=== PATIENT | female | born 1985 | race Caucasian/White ===

== ENCOUNTER → 2022-09-14 | Outpatient (CLI) | payer BC, OTHER ==
[~2022-09-14] MED LIST: IRON150C; MULTI VITAMIN1 EACH; OMEG1CAP30
[2022-09-18 11:09] LABS: HPV 16 Negative (Negative); HPV 18 Negative (Negative); HPV OTHER HR TYPES Negative (Negative)
== END | disposition home or self-care (01) ==
LOC: LAB SHORT 15:13
PROVIDERS: Family Medicine
DX: O09.511 Supervision of elderly primigravida, first trimester (principal); Z01.419 Encounter for gynecological examination (general) (routine) without abnormal findings
CPT/HCPCS: 87086; 87624; G0145

== ENCOUNTER → 2023-02-27 | Outpatient (CLI) | payer BC ==
[2023-02-27 09:36] LABS: Source, Urine Clean Catch
[2023-02-27 15:38] LABS: Appearance, Urine Cloudy (Clear); Bilirubin, Urine Neg (Neg); Blood, Urine 1+ (Neg); Color, Urine Yellow (P-Yellow); Glucose Qualitative, Urine Neg (Neg); Ketones, Urine Neg (Neg); Leukocyte Esterase, Urine 3+ (Neg); Nitrite, Urine Pos (Neg); Protein, Urine 2+ (Neg); Specific Gravity, Urine 1.015 (1.003-1.022); Urobilinogen, Urine NORM (Normal)
[2023-02-27 16:19] LABS: Bacteria Many /hpf; Squamous Epithelial Cells Many /hpf (Few); White Blood Cells, Urine 50-100 /hpf (0-5)
[2023-02-27 16:20] LABS: Calcium Oxalate Crystals Mod /hpf; Transitional Epithelial Cells Few /hpf (0-Rare)
== END | disposition home or self-care (01) ==
LOC: LAB SHORT 09:34 → LAB 09:34
PROVIDERS: Advanced Practice Midwife
DX: O09.513 Supervision of elderly primigravida, third trimester (principal); D72.829 Elevated white blood cell count, unspecified
CPT/HCPCS: 81001; 87077; 87081; 87086; 87150; 87186

== ENCOUNTER 2023-03-13 19:30 | Inpatient (IN) | payer BC ==
[~2023-03-13] VITALS: Ht 165.1 cm; Wt 130.0 kg
[2023-03-13 20:12] LABS: BASOPHILS ABSOLUTE AUTO 0.04 K/mm3 (0.00-0.23); BASOPHILS PERCENT AUTO 0 % (0-2); EOSINOPHILS ABSOLUTE AUTO 0.12 K/mm3 (0.00-0.68); EOSINOPHILS PERCENT AUTO 1 % (0-6); Hematocrit 38.2 % (33.0-51.0); Hemoglobin 13.3 g/dL (11.5-16.0); IMMATURE GRAN ABSOLUTE AUTO 0.05 K/mm3 (0.00-0.10); IMMATURE GRAN PERCENT AUTO 0 % (0-1); LYMPHOCYTES ABSOLUTE AUTO 2.18 K/mm3 (0.84-5.20); LYMPHOCYTES PERCENT AUTO 20 % (21-46); MONOCYTES ABSOLUTE AUTO 0.64 K/mm3 (0.16-1.47); MONOCYTES PERCENT AUTO 6 % (4-13); Mean Corpuscular HGB 30.9 pg (26.0-34.0); Mean Corpuscular HGB Conc 34.8 g/dL (31.5-36.5); Mean Corpuscular Volume 89 fL (80-100); NEUTROPHILS ABSOLUTE AUTO 8.12 K/mm3 (1.96-9.15); NEUTROPHILS PERCENT AUTO 73 % (41-73); Platelet Count 299 K/mm3 (150-400); RDW Coefficient Variation 12.5 % (11.7-14.2); RDW Standard Deviation 40.7 fL (35.1-46.3); White Blood Cell Count 11.15 K/mm3 (4.00-11.30)
[2023-03-13 20:38] LABS: Albumin, Blood 2.6 g/dL (3.4-5.0); Albumin/Globulin Ratio 0.6 (0.8-1.8); Bilirubin, Total 0.6 mg/dL (0.1-1.0); Calcium, Blood 9.9 mg/dL (8.5-10.1); Creatinine, Blood 0.75 mg/dL (0.40-1.00); Globulin, Blood 4.7 g/dL (2.2-4.0); Potassium, Blood 4.2 mmol/L (3.5-5.5); Total Protein, Blood 7.3 g/dL (6.4-8.2)
[2023-03-13] MEDS ORDERED: URSODIOL200 MG (20:39)
[2023-03-13] MEDS ORDERED: ASPI81CH (20:39)
[2023-03-13] MEDS ORDERED: PRENATAL TABLE1 EAC2 (20:40)
[2023-03-13 20:43] VITALS: BP 138/83
[2023-03-13 21:07] LABS: Protein, Urine Random 40.9 mg/dL (0.0-11.9); Protein/Creat Ratio, Ur Random 0.1
[2023-03-14] VITALS (32 sets, daily range): BP systolic 120–180; BP diastolic 55–94
--- NOTE | 2023-03-14 17:11 | NUR ---
BLEEDING PT CONTINUES TO HAVE A FULL PAD OF CLOTS. UTERUS FIRM AND SCANT BLEEDING WITH MASSAGE. DR WHITE IN HOUSE AND IN TO ASSESS. BLEEDING COMING FROM LACERATION NEAR THE URETHRA. STERILE FIELD OUT AND REPAIR DONE. FENTANYL GIVEN FOR PAIN RELIEF.
[2023-03-15 01:36] VITALS: BP 139/70
[2023-03-15 07:33] VITALS: BP 134/76
== END 2023-03-15 11:40 | disposition home or self-care (01) | DRG 805 ==
LOC: OBS 19:30 → BC 19:32 → OBS 19:36 → BC 19:37
PROVIDERS: ADMIT Advanced Practice Midwife
PROC: 10E0XZZ Delivery of Products of Conception, External Approach (ICD-10-PCS; principal; 2023-03-14)
PROC: 3E0R3BZ Introduction of Anesthetic Agent into Spinal Canal, Percutaneous Approach (ICD-10-PCS; 2023-03-14)
PROC: 00HU33Z Insertion of Infusion Device into Spinal Canal, Percutaneous Approach (ICD-10-PCS; 2023-03-14)
PROC: 0HQ9XZZ Repair Perineum Skin, External Approach (ICD-10-PCS; 2023-03-14)
PROC: 0UQMXZZ Repair Vulva, External Approach (ICD-10-PCS; 2023-03-14)
DX: O26.643 Intrahepatic cholestasis of pregnancy, third trimester (principal); K83.1 Obstruction of bile duct; Z37.0 Single live birth; O99.214 Obesity complicating childbirth; Z3A.38 38 weeks gestation of pregnancy; O70.0 First degree perineal laceration during delivery; O71.82 Other specified trauma to perineum and vulva; Z98.890 Other specified postprocedural states; Z88.2 Allergy status to sulfonamides; Z79.899 Other long term (current) drug therapy
CPT/HCPCS: 36415; 51702; 80053; 82570; 84156; 85025; 86850; 86900; 86901; 86923; A9270; J2590; J3010; J7120

== ENCOUNTER 2024-01-25 12:42 | Day surgery (SDC) | payer BC ==
[~2024-01-25] VITALS: Ht 165.1 cm; Wt 125.8 kg
[~2024-01-25 12:42] MED LIST changes: +ASPI81CH; +Lactated Ringer's 1,000 ML IV ONE; +PRENATAL TABLE1 EAC2; +URSODIOL200 MG
[2024-01-25] MEDS ORDERED: Lactated Ringer's 1,000 ML IV ONE (13:45)
[2024-01-25] MEDS ORDERED: propofoL 50 ML IV ONE (14:00)
[2024-01-25] MEDS ORDERED: Lidocaine 2% 5 ML SDV ONE (14:45)
[2024-01-25 14:51] VITALS: BP 105/60
== END 2024-01-25 14:53 | disposition home or self-care (01) ==
LOC: ORSCSDS 12:42
PROVIDERS: Internal Medicine Gastroenterology
PROC: 0DBL8ZX Excision of Transverse Colon, Via Natural or Artificial Opening Endoscopic, Diagnostic (ICD-10-PCS; principal; 2024-01-25 14:00)
DX: Z12.11 Encounter for screening for malignant neoplasm of colon (principal); Z80.0 Family history of malignant neoplasm of digestive organs; D12.3 Benign neoplasm of transverse colon; K21.9 Gastro-esophageal reflux disease without esophagitis
CPT/HCPCS: 88305; J2704; J7120

== ENCOUNTER → 2024-06-20 | Outpatient (CLI) | payer BC ==
[~2024-06-20] MED LIST changes: -Lactated Ringer's 1,000 ML IV ONE
[2024-06-20 14:44] LABS: Source, Urine Clean Catch
[2024-06-20 15:43] LABS: Bacteria Mod /hpf; Red Blood Cells, Urine 0-2 /hpf (0-2); Squamous Epithelial Cells Few /hpf (Few)
== END | disposition home or self-care (01) ==
LOC: LAB SHORT 14:41
PROVIDERS: Advanced Practice Midwife
DX: O09.521 Supervision of elderly multigravida, first trimester (principal)
CPT/HCPCS: 81015; 87086

== ENCOUNTER → 2024-12-26 | Outpatient (CLI) | payer BC | LOC: LAB 13:52 → LAB SHORT 13:52 | DX: O09.90 Supervision of high risk pregnancy, unspecified, unspecified trimester (principal) | CPT/HCPCS: 87081; 87150 ==

== ENCOUNTER 2025-01-16 17:55 | Inpatient (IN) | payer BC ==
[~2025-01-16] VITALS: Ht 165.1 cm; Wt 134.1 kg
[2025-01-16] MEDS ORDERED: PRENATAL TABLE1 EAC2 PO (18:19)
[2025-01-16] MEDS ORDERED: ASPI81CH PO (18:19)
[2025-01-16] MEDS ORDERED: Methylergonovine Maleate 0.2MG / ML 1ML Amp IM PRN (19:25)
[2025-01-16] MEDS ORDERED: Oxytocin 10 Unit / ML Vial IM PRN (19:25)
[2025-01-16] MEDS ORDERED: Ondansetron HCl 2 MG / ML 2ML Vial IV PRN (19:25)
[2025-01-16] MEDS ORDERED: ePHEDrine Sulfate 50 MG/ML 1ML Injection XX PRN (19:25)
[2025-01-16] MEDS ORDERED: Carboprost Tromethamine 250 MCG/ML 1ML Amp IM PRN (19:25)
[2025-01-16] MEDS ORDERED: FentaNYL 2mcg/ml-Bup 0.1% Epd 250 ML EPI PRN (19:25)
[2025-01-16] MEDS ORDERED: OXYTOCIN/RINGER'S LACTATE 500 ML IV PRN ×2 (19:25)
[2025-01-16 19:37] VITALS: BP 109/55
[2025-01-16 19:52] LABS: BASOPHILS ABSOLUTE AUTO 0.04 K/mm3 (0.00-0.23); BASOPHILS PERCENT AUTO 0 % (0-2); EOSINOPHILS ABSOLUTE AUTO 0.14 K/mm3 (0.00-0.68); EOSINOPHILS PERCENT AUTO 1 % (0-6); Hematocrit 37.2 % (33.0-51.0); Hemoglobin 13.1 g/dL (11.5-16.0); IMMATURE GRAN ABSOLUTE AUTO 0.06 K/mm3 (0.00-0.10); IMMATURE GRAN PERCENT AUTO 1 % (0-1); LYMPHOCYTES ABSOLUTE AUTO 2.22 K/mm3 (0.84-5.20); LYMPHOCYTES PERCENT AUTO 21 % (21-46); MONOCYTES ABSOLUTE AUTO 0.86 K/mm3 (0.16-1.47); MONOCYTES PERCENT AUTO 8 % (4-13); Mean Corpuscular HGB Conc 35.2 g/dL (31.5-36.5); Mean Corpuscular Volume 89 fL (80-100); NEUTROPHILS ABSOLUTE AUTO 7.35 K/mm3 (1.96-9.15); NEUTROPHILS PERCENT AUTO 69 % (41-73); NRBC ABSOLUTE 0.00 K/mm3 (0.00-0.02); NRBC Auto 0.0 /100 WBC (0.0-0.2); RDW Coefficient Variation 12.8 % (11.7-14.2); RDW Standard Deviation 41.6 fL (35.1-46.3)
[2025-01-16 20:17] LABS: Platelet Count 266 K/mm3 (150-400)
[2025-01-16 23:52] VITALS: BP 112/56
[2025-01-17] VITALS (42 sets, daily range): BP systolic 128–169; BP diastolic 62–103
[2025-01-17] MEDS ORDERED: Metoclopramide HCl 5MG / ML 2ML Vial IV PRN (14:45)
[2025-01-17] MEDS ORDERED: Ondansetron HCl 2 MG / ML 2ML Vial IV PRN (14:45)
[2025-01-17] MEDS ORDERED: Naloxone HCl 0.4MG / ML 1ML Vial IV PRN (14:45)
[2025-01-17] MEDS ORDERED: ePHEDrine Sulfate 50 MG/ML 1ML Injection IV PRN (14:50)
[2025-01-17] MEDS ORDERED: DiphenhydrAMINE HCl 50 MG/ML 1ML Vial IV PRN (14:50)
[2025-01-17] MEDS ORDERED: Carboprost Tromethamine 250 MCG/ML 1ML Amp IM PRN (19:55)
[2025-01-17] MEDS ORDERED: Witch Hazel/Glycerin PADS TOP PRN (19:55)
[2025-01-17] MEDS ORDERED: Benzocaine Topical Anesthetic Spray 60GM TOP PRN (20:00)
[2025-01-17] MEDS ORDERED: Ketorolac Tromethamine 30mg Vial IV PRN (20:00)
[2025-01-17] MEDS ORDERED: OXYTOCIN/RINGER'S LACTATE 500 ML IV SCH (20:05)
[2025-01-18 04:40] VITALS: BP 144/83
[2025-01-18] MEDS ORDERED: Prenatal Vit/FE Fumarate/FA 1 Tab PO SCH (09:00)
[2025-01-18 09:30] VITALS: BP 114/70
[2025-01-18 14:12] VITALS: BP 124/68
[2025-01-18 16:34] VITALS: BP 144/65
[2025-01-18 19:14] VITALS: BP 127/85
== END 2025-01-18 19:23 | disposition home or self-care (01) | DRG 807 ==
LOC: OBS 17:55 → BC 18:03
PROVIDERS: ADMIT Family Medicine
PROC: 10E0XZZ Delivery of Products of Conception, External Approach (ICD-10-PCS; principal; 2025-01-17)
PROC: 4A1HXCZ Monitoring of Products of Conception, Cardiac Rate, External Approach (ICD-10-PCS; 2025-01-17)
PROC: 10907ZC Drainage of Amniotic Fluid, Therapeutic from Products of Conception, Via Natural or Artificial Opening (ICD-10-PCS; 2025-01-17)
PROC: 3E033VJ Introduction of Other Hormone into Peripheral Vein, Percutaneous Approach (ICD-10-PCS; 2025-01-17)
DX: O26.643 Intrahepatic cholestasis of pregnancy, third trimester (principal); Z37.0 Single live birth; O13.4 Gestational [pregnancy-induced] hypertension without significant proteinuria, complicating childbirth; Z3A.39 39 weeks gestation of pregnancy; Z88.2 Allergy status to sulfonamides; Z79.82 Long term (current) use of aspirin; O76 Abnormality in fetal heart rate and rhythm complicating labor and delivery; O43.193 Other malformation of placenta, third trimester; O09.93 Supervision of high risk pregnancy, unspecified, third trimester; Z87.19 Personal history of other diseases of the digestive system; Z87.59 Personal history of other complications of pregnancy, childbirth and the puerperium
CPT/HCPCS: 36415; 51702; 80053; 82239; 82570; 84156; 85025; 86850; 86900; 86901; 86923; A9270; J1885; J2590; J7120